=== PATIENT | male | born 1995 | race Caucasian/White ===

== ENCOUNTER 2019-02-17 20:30 | Emergency (ER) | payer MEDICAID ==
--- NOTE | 2019-02-17 21:58 | CRLCT ---
INDICATION: Concussion TECHNIQUE: CT head without contrast. COMPARISON: None. FINDINGS: CSF spaces: Within normal limits for age. Brain parenchyma and extra-axial spaces: The hall-white differentiation is normal. No sign of mass, hemorrhage, or midline shift. No extra-axial fluid collection. Skull base and calvarium: The visualized paranasal sinuses and mastoid air cells demonstrate no acute or significant findings. The visualized orbits are grossly unremarkable. No skull fractures. IMPRESSION: Unremarkable noncontrast head CT. No signs of acute injury. Dictated by Cristian Cano MD @ 02/17/2019 9:56:26 PM Please note that all CT scans at this facility use dose modulation, iterative reconstruction, and/or weight-based dosing when appropriate to reduce radiation dose to as low as reasonably achievable. Dictated by: Cristian Cano MD @ 02/17/2019 21:56:37 (Electronically Signed)
--- NOTE | 2019-02-17 23:05 | CRLCR ---
INDICATION: Trauma TECHNIQUE: Two views left tibia and fibula COMPARISON: None FINDINGS: Bones: Alignment is normal. No fractures or bone lesions. Joint spaces: Unremarkable. Soft tissues: Unremarkable. IMPRESSION: Negative. Dictated by Victor M Iniguez MD @ 02/17/2019 11:02:56 PM Dictated by: Victor M Iniguez MD @ 02/17/2019 23:03:01 (Electronically Signed)
--- NOTE | 2019-02-17 23:10 | EDM.PDOC ---
ED HPI GENERAL MEDICAL PROBLEM - General Chief Complaint: Lower Extremity Injury/Pain Stated Complaint: MEDICAL VIA [facility] Time Seen by Provider: 02/17/19 20:42 Source of Information: Reports: Patient, Family History Limitations: Reports: No Limitations - History of Present Illness INITIAL COMMENTS - FREE TEXT/NARRATIVE: This patient arrived by EMS after being thrown off a horse. He said he was riding and the horse refused to go forward and when he kicked it with his heels it reared up and threw him off the back. He hit the right side of his head against a wooden fence post. He said he was stunned and may have been knocked out for a second or 2. His or female friend agrees. She said that on the way to the hospital he kept asking the same questions repeatedly so she thought he might be a little bit confused. She said he seems back to normal now. The patient also said he hurt his left lower leg however the initial exam didn' t seem to indicate much of a problem with it. When rechecked after the CT of his head he said that he is not able to walk on the left leg and that the horse stepped on it that is the upper inner part of his left calf. He said a few weeks ago that area also was stepped on by a horse and it was swollen for a long time and kind of really never got better but then tonight the horse stepped on the same place again. - Related Data Allergies Allergy/AdvReac Type Severity Reaction Status Date / Time No Known Allergies Allergy Verified 02/17/19 20:32 Home Meds: Home Meds busPIRone HCl [Buspirone HCl] 15 mg PO DAILY 02/17/19 [History] Past Medical History Musculoskeletal History: Reports: Fracture Social & Family History - Family History Family Medical History: Noncontributory - Tobacco Use Smoking Status *Q: Current Every Day Smoker Years of Tobacco use: 12 Packs/Tins Daily: 0.5 Used Tobacco, but Quit: No - Caffeine Use Caffeine Use: Reports: None - Alcohol Use Days Per Week of Alcohol Use: 2 Number of Drinks Per Day: 6 Total Drinks Per Week: 12 - Recreational Drug Use Recreational Drug Use: Yes Recreational Drug Type: Reports: Marijuana/Hashish Recreational Drug Use Frequency: Rarely Review of Systems - Review of Systems Review Of Systems: ROS reveals no pertinent complaints other than HPI. ED EXAM, GENERAL - Physical Exam Exam: See Below Exam Limited By: No Limitations General Appearance: Alert, WD/WN, Mild Distress Eye Exam: Bilateral Eye: EOMI, PERRL Ears: Normal External Exam Nose: Normal Inspection Throat/Mouth: Normal Inspection Head: Other (There is a small contusion just above and posterior to the right ear) Neck: Supple, Non-Tender Respiratory/Chest: No Respiratory Distress Cardiovascular: Regular Rate, Rhythm Extremities: Other (There is swelling and firmness to the left lower leg the anteromedial part just distal to the knee. That area is very tender. In fact much of the upper left calf is tender. He does however have good range of motion of the foot and ankle and there does not appear to be any chance of a compartment syndrome. Neurovascular tendon all intact) Neurological: No Motor/Sensory Deficits Course - Vital Signs Last Recorded V/S: Last Vital Signs Temp 36.1 C 02/17/19 20:35 Pulse 94 02/17/19 20:35 Resp 16 02/17/19 20:35 BP 123/83 02/17/19 20:35 Pulse Ox 97 02/17/19 20:35 - Radiology Interpretation Free Text/Narrative:: Head CT shows no acute injury. X-ray of the left tib-fib shows no evidence of fracture. - Re-Assessments/Exams Free Text/Narrative Re-Assessment/Exam: 02/17/19 23:11 I explained carefully the situation with compartment syndrome and that I do not think he has a compartment syndrome but that if he began having severe pain with just moving his foot back and forth then that could signal buildup of pressure and he needs to be seen immediately in the emergency department. An Shahzad wrap was applied. He was fitted with crutches Departure - Departure Time of Disposition: 23:27 Disposition: Home, Self-Care 01 Condition: Fair Clinical Impression: Minor closed head injury, Contusion of left calf - Discharge Information Referrals: PCP,None [Primary Care Provider] - Additional Instructions: Use crutches as needed. You may bear weight as tolerated but it is best to keep it elevated as much as possible. Apply ice frequently. Watch for signs of a compartment syndrome which is where blood gets cut off to the muscles because of swelling. If that happened he would have severe pain every time you flexed or extended your ankle. If that happens that's an emergency and you need to be seen immediately. Your exam shows you don't have that. Use the pain medication, Narco 5/325, #12 tablets, one or 2 every 4 hours. This medication can cause sedation and impair driving and can lead to addiction.
== END 2019-02-17 23:44 | disposition home or self-care (01) ==
LOC: EEVIPCON 20:30 → JP.ED 20:30
DX: S00.431A Contusion of right ear, initial encounter (principal); S80.12XA Contusion of left lower leg, initial encounter; F17.210 Nicotine dependence, cigarettes, uncomplicated; Z79.899 Other long term (current) drug therapy; V80.010A Animal-rider injured by fall from or being thrown from horse in noncollision accident, initial encounter
CPT/HCPCS: 70450; 73590-LT; 99284-25